=== PATIENT | female | born 1985 | race Caucasian/White ===

== ENCOUNTER 2017-01-18 20:33 | Emergency (ER) | payer MEDICAID ==
[2017-01-18 21:22] VITALS: BP 149/94
[2017-01-18] MEDS ORDERED: Ketorolac 60 MG/2 ML SDV IM ONE (22:26)
--- NOTE | 2017-01-18 22:27 | EDM.PDOC ---
ED HPI GENERAL MEDICAL PROBLEM - General Chief Complaint: Abdominal Pain Stated Complaint: OVARIAN PAIN Time Seen by Provider: 01/18/17 22:24 Source of Information: Reports: Patient History Limitations: Reports: No Limitations - History of Present Illness INITIAL COMMENTS - FREE TEXT/NARRATIVE: pt has acute pain in the left lower abdomn. Onset: Today Duration: Hour(s):, Getting Worse, Other (pt has a past history of ovarian cysts. 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) Other OB/BYN History: ovarian cyst right side Endocrine/Metabolic History: Reports: Obesity/BMI 30+ - Infectious Disease History Infectious Disease History: Reports: Chicken Pox - Past Surgical History Female Surgical History: Reports: Section Social & Family History - Tobacco Use Smoking Status *Q: Light Tobacco Smoker Years of Tobacco use: 15 Packs/Tins Daily: 0.2 Used Tobacco, but Quit: Yes Month Tobacco Last Used: 05/18 Second Hand Smoke Exposure: No - Caffeine Use Caffeine Use: Reports: Soda - Recreational Drug Use Recreational Drug Use: No ED ROS GENERAL - Review of Systems Review Of Systems: See Below Constitutional: Reports: No Symptoms HEENT: Reports: No Symptoms Respiratory: Reports: No Symptoms Cardiovascular: Reports: No Symptoms Endocrine: Reports: No Symptoms GI/Abdominal: Reports: Abdominal Pain, Other (pt has pain in the 6 range in the left lower abdoman. She does have a past history of ovarian cysts. ) : Reports: No Symptoms Musculoskeletal: Reports: No Symptoms Skin: Reports: No Symptoms ED EXAM, RENAL/ - Physical Exam Exam: See Below Text/Narrative:: pt arrived with pain in the left lower quadrant area. Exam Limited By: No Limitations General Appearance: Alert, Anxious, Moderate Distress Ears: Normal TMs Nose: Normal Inspection Throat/Mouth: Normal Inspection Head: Atraumatic Neck: Normal Inspection Respiratory/Chest: No Respiratory Distress Cardiovascular: Regular Rate, Rhythm GI/Abdominal: Soft, Non-Tender (Female) Exam: Other (pt is tender very low in the left abdoman. ) Rectal (Female) Exam: Deferred Back Exam: Normal Inspection Extremities: Normal Inspection Neurological: Alert, Oriented, Normal Cognition Psychiatric: Normal Affect Course - Vital Signs Last Recorded V/S: Last Vital Signs Temp 36.5 C 01/18/17 23:48 Pulse 81 01/18/17 23:48 Resp 16 01/18/17 23:48 BP 149/94 H 01/18/17 21:21 Pulse Ox 97 01/18/17 23:48 - Orders/Labs/Meds Orders: Active Orders 24 hr Category Date Time Status Pelvis Non OB Comp [US] Stat Exams 01/18/17 22:22 Taken Transvaginal Non OB [US] Stat Exams 01/18/17 22:22 Taken Labs: Laboratory Tests 01/18/17 01/18/17 01/18/17 Range/Units 21:45 21:45 21:53 WBC 13.3 H (4.5-11.0) K/uL RBC 5.31 (3.30-5.50) M/uL Hgb 15.3 H D (12.0-15.0) g/dL Hct 45.5 (36.0-48.0) % MCV 86 (80-98) fL MCH 29 (27-31) pg MCHC 34 (32-36) % Plt Count 341 (150-400) K/uL Neut % (Auto) 67 H (36-66) % Lymph % (Auto) 24 (24-44) % [place] % (Auto) 8 H (2-6) % Eos % (Auto) 1 L (2-4) % Baso % (Auto) 1 (0-1) % Sodium 142 (140-148) mmol/L Potassium 4.0 (3.6-5.2) mmol/L Chloride 106 (100-108) mmol/L Carbon Dioxide 25 (21-32) mmol/L Anion Gap 11.1 (5.0-14.0) mmol/L BUN 9 (7-18) mg/dL Creatinine 0.9 (0.6-1.0) mg/dL Est Cr Clr Drug Dosing 71.63 mL/min Estimated GFR (MDRD) > 60 (>60) Glucose 97 (74-106) mg/dL Calcium 9.4 D (8.5-10.1) mg/dL Total Bilirubin 0.3 (0.2-1.0) mg/dL AST 16 (15-37) U/L ALT 30 (12-78) U/L Alkaline Phosphatase 68 (46-116) U/L Total Protein 7.4 (6.4-8.2) g/dL Albumin 4.0 (3.4-5.0) g/dL Globulin 3.4 (2.3-3.5) g/dL Albumin/Globulin Ratio 1.2 (1.2-2.2) Urine Color Yellow Urine Appearance Clear Urine pH 5.0 (4.5-8.0) Ur Specific [place] 1.005 L (1.008-1.030) Urine Protein Negative (NEGATIVE) mg/dL Urine Glucose (UA) Normal (NEGATIVE) mg/dL Urine Ketones Negative (NEGATIVE) mg/dL Urine Occult Blood Negative (NEGATIVE) Urine Nitrite Negative (NEGATIVE) Urine Bilirubin Negative (NEGATIVE) Urine Urobilinogen Normal (NORMAL) mg/dL Ur Leukocyte Esterase Negative (NEGATIVE) Urine RBC 0-5 (0-5) Urine WBC 0-5 (0-5) Ur Epithelial Cells Many Amorphous Sediment Not seen Urine Bacteria Not seen Urine Mucus Not seen Meds: Medications Discontinued Medications Generic Name Dose Route Start Last Admin Trade Name Freq PRN Reason Stop Dose Admin Ketorolac Tromethamine 60 mg 01/18/17 22:26 01/18/17 22:34 Toradol IM 01/18/17 22:27 60 mg ONETIME ONE Administration - Re-Assessments/Exams Free Text/Narrative Re-Assessment/Exam: 01/19/17 00:41 pt arrived with pain in the left lower abdoman. She wa given torodol 60mg im. She had a pelvic US which showed a 2.8 cm ovarian cyst with a IUD in place. This did not show increased inflamation. The pt had no change in discharge. Departure - Departure Time of Disposition: 00:42 Disposition: Home, Self-Care 01 Condition: Fair Clinical Impression: Left ovarian cyst - Discharge Information Forms: ED Department Discharge Care Plan Goals: follow up with regular Dr, motrin 600mg tid, norco 5/325 q6h prn for pain - My Orders Last 24 Hours: My Active Orders 01/18/17 22:22 Pelvis Non OB Comp [US] Stat Transvaginal Non OB [US] Stat - Assessment/Plan Last 24 Hours: My Active Orders 01/18/17 22:22 Pelvis Non OB Comp [US] Stat Transvaginal Non OB [US] Stat
== END 2017-01-19 00:59 | disposition home or self-care (01) ==
LOC: JP.ED 20:33
DX: N83.202 Unspecified ovarian cyst, left side (principal); F17.210 Nicotine dependence, cigarettes, uncomplicated; E66.9 Obesity, unspecified; Z88.2 Allergy status to sulfonamides
CPT/HCPCS: 36415; 76830; 76856; 80053; 81001; 85025; 96372; 99284; J1885

== ENCOUNTER 2017-05-28 20:33 | Emergency (ER) | payer BC, MEDICAID ==
[2017-05-28 21:00] VITALS: BP 155/98
[2017-05-28] MEDS ORDERED: Ondansetron 4 MG/2 ML SDV IVPUSH ONE (21:49)
[2017-05-28] MEDS ORDERED: Ketorolac 30 MG/ML SDV IVPUSH ONE (21:49)
[2017-05-28] MEDS ORDERED: Sodium Chloride 0.9% 1,000 ML IV ONE (21:50)
[2017-05-28] MEDS ORDERED: Sodium Chloride 0.9% 10 ML Syringe FLUSH PRN (22:14)
[2017-05-28] MEDS ORDERED: Iopamidol 612 MG/ML 150 ML Bottle IV SCH (22:15)
[2017-05-28] MEDS ORDERED: Sodium Chloride 0.9% 80 ML IV SCH (22:15)
--- NOTE | 2017-05-28 22:29 | EDM.PDOC ---
ED HPI GENERAL MEDICAL PROBLEM - General Chief Complaint: Abdominal Pain Stated Complaint: OVARIAN CYSTS Time Seen by Provider: 05/28/17 21:19 Source of Information: Reports: Patient History Limitations: Reports: No Limitations - History of Present Illness INITIAL COMMENTS - FREE TEXT/NARRATIVE: Abdominal pain: This is a 31-year-old female presents emergency room by private vehicle, she reports 6 days of left-sided abdominal pain constant stabbing type pain that has worsened today and she is now here for evaluation. She rates her pain 7 or 8 out of 10. Denies any nausea, vomiting, diarrhea, rash, fever or chills. Reports history of left ovarian cyst, last cyst evaluation was in the emergency room which showed a 2.8 cm cyst on the left side without rupture. Surgical history consists of 2. Past medical, ovarian cysts, childbirth 2 and IUD placement Onset: Gradual Duration: Day(s): (6), Getting Worse Location: Reports: Abdomen Quality: Reports: Sharp, Stabbing, Throbbing Severity: Severe (Rates pain 7 out of 10) Improves with: Reports: None Worsens with: Reports: None Associated Symptoms: Reports: No Other Symptoms (Exactly which is) left flank Pain Score (Numeric/FACES): 6 - Related Data Allergies Allergy/AdvReac Type Severity Reaction Status Date / Time Sulfa (Sulfonamide Allergy Hives Verified 05/28/17 21:10 Antibiotics) Home Meds: Home Meds NK [No Known Home Meds] 05/28/17 [History] Past Medical History - Past Health History Medical/Surgical History: Denies 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: , 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) Other OB/BYN History: ovarian cyst right side Endocrine/Metabolic History: Reports: Obesity/BMI 30+ - Infectious Disease History Infectious Disease History: Reports: Chicken Pox - Past Surgical History Female Surgical History: Reports: Section Social & Family History - Tobacco Use Smoking Status *Q: Light Tobacco Smoker Years of Tobacco use: 2 Packs/Tins Daily: 0.2 Used Tobacco, but Quit: Yes Month Tobacco Last Used: 05/18 Second Hand Smoke Exposure: No - Caffeine Use Caffeine Use: Reports: Soda - Recreational Drug Use Recreational Drug Use: No - Living Situation & Occupation Living situation: Reports: , with Family (Lives with her and 2 children ages 4 and 2 years., in [facility]) ED ROS GENERAL - Review of Systems Review Of Systems: See Below Constitutional: Reports: Fatigue (Due to pain) HEENT: Reports: No Symptoms Respiratory: Reports: No Symptoms Cardiovascular: Reports: No Symptoms Endocrine: Reports: No Symptoms GI/Abdominal: Reports: Abdominal Pain : Reports: No Symptoms Musculoskeletal: Reports: Back Pain (Mid left-sided) Skin: Reports: No Symptoms Neurological: Reports: No Symptoms Psychiatric: Reports: No Symptoms Hematologic/Lymphatic: Reports: No Symptoms Immunologic: Reports: No Symptoms ED EXAM, GENERAL - Physical Exam Exam: See Below Exam Limited By: No Limitations General Appearance: Alert, WD/WN, No Apparent Distress Eye Exam: Bilateral Eye: Normal Inspection Ears: Normal External Exam, Normal Canal, Hearing Grossly Normal, Normal TMs Ear Exam: Bilateral Ear: Auricle Normal, Canal Normal, TM normal Nose: Normal Inspection, Normal Mucosa, No Blood Throat/Mouth: Normal Inspection, Normal Lips, Normal Teeth, Normal Gums, Normal Oropharynx, Normal Voice, No Airway Compromise Head: Atraumatic, Normocephalic Neck: Normal Inspection, Supple, Non-Tender, Full Range of Motion Respiratory/Chest: Lungs Clear, Normal Breath Sounds, Chest Non-Tender Cardiovascular: Regular Rate, Rhythm, No Edema, No Murmur GI/Abdominal: Normal Bowel Sounds, Soft, Guarding (Left upper abdomen, with rebound tenderness and left flank pain), Rebound, Tender (Female) Exam: Deferred Rectal (Female) Exam: Deferred Back Exam: CVA Tenderness (L) Extremities: Normal Inspection, Normal Range of Motion, Non-Tender, No Pedal Edema, Normal Capillary Refill Neurological: Alert, Oriented, Normal Cognition, No Motor/Sensory Deficits Psychiatric: Normal Affect, Normal Mood Skin Exam: Warm, Dry, Intact, Normal Color, No Rash Lymphatic: No Adenopathy Course - Vital Signs Last Recorded V/S: Last Vital Signs Temp 36.4 C 05/28/17 20:59 Pulse 86 05/28/17 20:59 Resp 16 05/28/17 20:59 BP 155/98 H 05/28/17 20:59 Pulse Ox 96 05/28/17 20:59 - Orders/Labs/Meds Orders: Active Orders 24 hr Category Date Time Status Abdomen Pelvis w Cont [CT] Stat Exams 05/28/17 22:21 Taken Abdomen Pelvis wo Cont [CT] Stat Exams 05/28/17 21:48 Stop Req Pelvis Non OB Ltd [US] Stat Exams 05/29/17 00:05 Ordered Transvaginal Non OB [US] Stat Exams 05/29/17 00:05 Ordered Iopamidol [Isovue-300 (61%)] Med 05/28/17 22:15 Active 150 ml IV . DIRECTED Sodium Chloride 0.9% [Normal Saline] 1,000 ml Med 05/28/17 23:45 Active IV ASDIRECTED Sodium Chloride 0.9% [Normal Saline] 80 ml Med 05/28/17 22:15 Active IV ASDIRECTED Sodium Chloride 0.9% [Saline Flush] Med 05/28/17 22:14 Active 10 ml FLUSH ASDIRECTED PRN Medication Orders Sodium Chloride (Normal Saline) 80 mls @ 3 mls/sec IV ASDIRECTED MARY Last Admin: 05/28/17 22:30 Dose: 3 mls/sec Sodium Chloride (Normal Saline) 1,000 mls @ 125 mls/hr IV ASDIRECTED MARY Iopamidol (Isovue-300 (61%)) 150 ml IV . DIRECTED MARY Last Admin: 05/28/17 22:30 Dose: 150 ml Sodium Chloride (Saline Flush) 10 ml FLUSH ASDIRECTED PRN PRN Reason: Keep Vein Open Last Admin: 05/28/17 22:30 Dose: 10 ml Labs: Laboratory Tests 05/28/17 05/28/17 05/28/17 Range/Units 21:42 21:42 21:51 WBC 13.5 H (4.5-11.0) K/uL RBC 5.06 (3.30-5.50) M/uL Hgb 14.5 (12.0-15.0) g/dL Hct 43.1 (36.0-48.0) % MCV 85 (80-98) fL MCH 29 (27-31) pg MCHC 34 (32-36) % Plt Count 284 (150-400) K/uL Neut % (Auto) 59 (36-66) % Lymph % (Auto) 32 (24-44) % [place] % (Auto) 8 H (2-6) % Eos % (Auto) 1 L (2-4) % Baso % (Auto) 0 (0-1) % Sodium 142 (140-148) mmol/L Potassium 4.2 (3.6-5.2) mmol/L Chloride 109 H (100-108) mmol/L Carbon Dioxide 26 (21-32) mmol/L Anion Gap 11.2 (5.0-14.0) mmol/L BUN 9 (7-18) mg/dL Creatinine 0.8 (0.6-1.0) mg/dL Est Cr Clr Drug Dosing 80.59 mL/min Estimated GFR (MDRD) > 60 (>60) Glucose 95 (74-106) mg/dL Calcium 9.0 (8.5-10.1) mg/dL Total Bilirubin 0.2 (0.2-1.0) mg/dL AST 15 (15-37) U/L ALT 27 (12-78) U/L Alkaline Phosphatase 61 (46-116) U/L Total Protein 7.0 (6.4-8.2) g/dL Albumin 3.8 (3.4-5.0) g/dL Globulin 3.2 (2.3-3.5) g/dL Albumin/Globulin Ratio 1.2 (1.2-2.2) Urine Color Urine Appearance Urine pH (4.5-8.0) Ur Specific [place] (1.008-1.030) Urine Protein (NEGATIVE) mg/dL Urine Glucose (UA) (NEGATIVE) mg/dL Urine Ketones (NEGATIVE) mg/dL Urine Occult Blood (NEGATIVE) Urine Nitrite (NEGATIVE) Urine Bilirubin (NEGATIVE) Urine Urobilinogen (NORMAL) mg/dL Ur Leukocyte Esterase (NEGATIVE) Urine RBC (0-5) Urine WBC (0-5) Ur Epithelial Cells Amorphous Sediment Urine Bacteria Urine Mucus Urine HCG, Qual Negative 05/28/17 Range/Units 21:51 WBC (4.5-11.0) K/uL RBC (3.30-5.50) M/uL Hgb (12.0-15.0) g/dL Hct (36.0-48.0) % MCV (80-98) fL MCH (27-31) pg MCHC (32-36) % Plt Count (150-400) K/uL Neut % (Auto) (36-66) % Lymph % (Auto) (24-44) % [place] % (Auto) (2-6) % Eos % (Auto) (2-4) % Baso % (Auto) (0-1) % Sodium (140-148) mmol/L Potassium (3.6-5.2) mmol/L Chloride (100-108) mmol/L Carbon Dioxide (21-32) mmol/L Anion Gap (5.0-14.0) mmol/L BUN (7-18) mg/dL Creatinine (0.6-1.0) mg/dL Est Cr Clr Drug Dosing mL/min Estimated GFR (MDRD) (>60) Glucose (74-106) mg/dL Calcium (8.5-10.1) mg/dL Total Bilirubin (0.2-1.0) mg/dL AST (15-37) U/L ALT (12-78) U/L Alkaline Phosphatase (46-116) U/L Total Protein (6.4-8.2) g/dL Albumin (3.4-5.0) g/dL Globulin (2.3-3.5) g/dL Albumin/Globulin Ratio (1.2-2.2) Urine Color Yellow Urine Appearance Clear Urine pH 6.0 (4.5-8.0) Ur Specific [place] 1.015 (1.008-1.030) Urine Protein Negative (NEGATIVE) mg/dL Urine Glucose (UA) Normal (NEGATIVE) mg/dL Urine Ketones Negative (NEGATIVE) mg/dL Urine Occult Blood Negative (NEGATIVE) Urine Nitrite Negative (NEGATIVE) Urine Bilirubin Negative (NEGATIVE) Urine Urobilinogen Normal (NORMAL) mg/dL Ur Leukocyte Esterase Negative (NEGATIVE) Urine RBC Not seen (0-5) Urine WBC 0-5 (0-5) Ur Epithelial Cells Moderate Amorphous Sediment Not seen Urine Bacteria Few Urine Mucus Not seen Urine HCG, Qual Meds: Medications Generic Name Dose Route Start Last Admin Trade Name Freq PRN Reason Stop Dose Admin Sodium Chloride 80 mls @ 3 mls/sec 05/28/17 22:15 05/28/17 22:30 Normal Saline IV 3 mls/sec ASDIRECTED MARY Administration Sodium Chloride 1,000 mls @ 125 mls/hr 05/28/17 23:45 Normal Saline IV ASDIRECTED MARY Iopamidol 150 ml 05/28/17 22:15 05/28/17 22:30 Isovue-300 (61%) IV 150 ml . DIRECTED MARY Administration Sodium Chloride 10 ml 05/28/17 22:14 05/28/17 22:30 Saline Flush FLUSH 10 ml ASDIRECTED PRN Administration Keep Vein Open Discontinued Medications Generic Name Dose Route Start Last Admin Trade Name Sonia PRN Reason Stop Dose Admin Sodium Chloride 1,000 mls @ 999 mls/hr 05/28/17 21:50 05/28/17 22:02 Normal Saline IV 05/28/17 22:50 999 mls/hr .BOLUS ONE Administration Ketorolac Tromethamine 30 mg 05/28/17 21:49 05/28/17 22:02 Toradol IVPUSH 05/28/17 21:50 30 mg ONETIME ONE Administration Ondansetron HCl 4 mg 05/28/17 21:49 05/28/17 22:02 Zofran IVPUSH 05/28/17 21:50 4 mg ONETIME ONE Administration - Re-Assessments/Exams Free Text/Narrative Re-Assessment/Exam: 05/28/17 22:32 While emergency room given 1 L normal saline, Zofran 4 mg, and Toradol 30 mg IV. has abdomen pelvis with contrast CT pending at this time; CT report abdomen pelvis no acute abnormality of the abdomen pelvis. 2 prominence of the left gonadal vein this is nonspecific but can be seen with pelvic congestion syndrome. 3 incomplete evaluation with 3.6 cm low attenuating structure within the right adnexa if clinically warranted could be further evaluated with a pelvic ultrasound. 05/29/17 00:38 Pelvis ultrasound; right ovarian cyst, free fluid is seen. No acute findings are noted Head CT report and the pelvic ultrasound with patient will plan to discharge home with pain medications and advised no bending lifting or twisting. plan to follow-up with her primary care next week or within the month at the latest. Return to ER for any acute abdominal pain or any concerns. Departure - Departure Time of Disposition: 00:41 Disposition: Home, Self-Care 01 Condition: Good Clinical Impression: Ovarian cyst, right, Muscle strain - Discharge Information Referrals: Gerson Navarro MD [Primary Care Provider] - Forms: ED Department Discharge Care Plan Goals: Right ovarian cyst with left abdominal wall strain -May use [id number] Motrin or Aleve or naproxen as directed for pain instrument hydrocodone 5/325 one every 4-6 when necessary pain #12 -Advised no bending, lifting, twisting, for the next 7 days then increase activities as tolerated -May use ice or heat for comfort -Return to primary care provider for recheck in the next 7-28 days Return to emergency room immediately for any increased pain, fever, nausea, vomiting are not improved. - Problem List & Annotations (1) Ovarian cyst, right SNOMED Code(s): 32407362 Code(s): N83.201 - UNSPECIFIED OVARIAN CYST, RIGHT SIDE Status: Acute Priority: Medium Current Visit: Yes - Problem List Review Problem List Initiated/Reviewed/Updated: Yes - My Orders Last 24 Hours: My Active Orders 05/28/17 21:48 Abdomen Pelvis wo Cont [CT] Stat 05/28/17 22:14 Sodium Chloride 0.9% [Saline Flush] 10 ml FLUSH ASDIRECTED PRN 05/28/17 22:15 Iopamidol [Isovue-300 (61%)] 150 ml IV . DIRECTED Sodium Chloride 0.9% [Normal Saline] 80 ml IV ASDIRECTED 05/28/17 22:21 Abdomen Pelvis w Cont [CT] Stat 05/28/17 23:45 Sodium Chloride 0.9% [Normal Saline] 1,000 ml IV ASDIRECTED 05/29/17 00:05 Pelvis Non OB Ltd [US] Stat Transvaginal Non OB [US] Stat - Assessment/Plan Last 24 Hours: My Active Orders 05/28/17 21:48 Abdomen Pelvis wo Cont [CT] Stat 05/28/17 22:14 Sodium Chloride 0.9% [Saline Flush] 10 ml FLUSH ASDIRECTED PRN 05/28/17 22:15 Iopamidol [Isovue-300 (61%)] 150 ml IV . DIRECTED Sodium Chloride 0.9% [Normal Saline] 80 ml IV ASDIRECTED 05/28/17 22:21 Abdomen Pelvis w Cont [CT] Stat 05/28/17 23:45 Sodium Chloride 0.9% [Normal Saline] 1,000 ml IV ASDIRECTED 05/29/17 00:05 Pelvis Non OB Ltd [US] Stat Transvaginal Non OB [US] Stat Plan: Right ovarian cyst with left abdominal wall strain -May use [id number] Motrin or Aleve or naproxen as directed for pain instrument hydrocodone 5/325 one every 4-6 when necessary pain #12 -Advised no bending, lifting, twisting, for the next 7 days then increase activities as tolerated -May use ice or heat for comfort -Return to primary care provider for recheck in the next 7-28 days Return to emergency room immediately for any increased pain, fever, nausea, vomiting are not improved.
[2017-05-28] MEDS ORDERED: Sodium Chloride 0.9% 1,000 ML IV SCH (23:45)
== END 2017-05-29 00:57 | disposition home or self-care (01) ==
LOC: JP.ED 20:33
DX: N83.201 Unspecified ovarian cyst, right side (principal); S39.011A Strain of muscle, fascia and tendon of abdomen, initial encounter; E66.9 Obesity, unspecified; F17.210 Nicotine dependence, cigarettes, uncomplicated; Z88.2 Allergy status to sulfonamides; X58.XXXA Exposure to other specified factors, initial encounter
CPT/HCPCS: 36415; 74177; 76830; 76856; 80053; 81001; 81025; 85025; 96361; 96374; 96375; 99284; J1885; J2405; J7030; J7040; J7050

== ENCOUNTER 2019-11-23 12:41 | Emergency (ER) | payer BC, MEDICAID ==
[2019-11-23 12:55] VITALS: BP 138/78; PULSE 89
[2019-11-23] MEDS ORDERED: Phenazopyridine 95 MG Tab PO ONE (13:25)
--- NOTE | 2019-11-23 13:41 | EDM.PDOC ---
ED HPI GENERAL MEDICAL PROBLEM - General Chief Complaint: Genitourinary Problem Stated Complaint: UTI? Time Seen by Provider: 11/23/19 13:20 Source of Information: Reports: Patient History Limitations: Reports: No Limitations - History of Present Illness INITIAL COMMENTS - FREE TEXT/NARRATIVE: 34-year-old female with dysuria and increased urinary frequency for the past 24 hours. No fever or back pain, no nausea or vomiting. She does have a history of bladder infections in the past. 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 Endocrine/Metabolic History: Reports: Obesity/BMI 30+ - Infectious Disease History Infectious Disease History: Reports: Chicken Pox - Past Surgical History Female Surgical History: Reports: Section Social & Family History - Tobacco Use Smoking Status *Q: Current Every Day Smoker Years of Tobacco use: 2 Packs/Tins Daily: 0.3 - Caffeine Use Caffeine Use: Reports: Soda - Recreational Drug Use Recreational Drug Use: No - Living Situation & Occupation Living situation: Reports: , with Family (Lives with her and 2 children ages 4 and 2 years., [place]) ED ROS GENERAL - Review of Systems Review Of Systems: See Below Constitutional: Denies: Fever, Chills Respiratory: Denies: Shortness of Breath Cardiovascular: Denies: Chest Pain GI/Abdominal: Denies: Abdominal Pain : Reports: Dysuria, Frequency Neurological: Reports: No Symptoms ED EXAM, RENAL/ - Physical Exam Exam: See Below Exam Limited By: No Limitations General Appearance: Alert, No Apparent Distress Head: Atraumatic Respiratory/Chest: No Respiratory Distress, Lungs Clear GI/Abdominal: Soft, Other (Some discomfort to palpation in the suprapubic area but no discrete tenderness or guarding) Back Exam: No: CVA Tenderness (R), CVA Tenderness (L) Neurological: Alert, Oriented Psychiatric: Normal Affect, Normal Mood Course - Vital Signs Last Recorded V/S: Last Vital Signs Temp 96.2 F L 11/23/19 12:54 Pulse 89 11/23/19 12:54 Resp 16 11/23/19 12:54 BP 138/78 11/23/19 12:54 Pulse Ox 100 11/23/19 12:54 - Orders/Labs/Meds Orders: Active Orders 24 hr Category Date Time Status CULTURE URINE [RM] Stat Lab 11/23/19 13:42 Received Labs: Laboratory Tests 11/23/19 Range/Units 13:17 Urine Color Yellow (YELLOW) Urine Appearance Cloudy A (CLEAR) Urine pH 5.5 (5.0-8.0) Ur Specific [place] >= 1.030 (1.008-1.030) Urine Protein 100 H (NEGATIVE) mg/dL Urine Glucose (UA) Negative (NEGATIVE) mg/dL Urine Ketones Negative (NEGATIVE) mg/dL Urine Occult Blood Large H (NEGATIVE) Urine Nitrite Positive H (NEGATIVE) Urine Bilirubin Negative (NEGATIVE) Urine Urobilinogen 0.2 (0.2-1.0) EU/dL Ur Leukocyte Esterase Small H (NEGATIVE) Urine RBC 40-50 H (0-5) Urine WBC 40-50 H (0-5) Ur Epithelial Cells Few Amorphous Sediment Not seen Urine Bacteria Many Urine Mucus Few Meds: Medications Discontinued Medications Generic Name Dose Route Start Last Admin Trade Name Freq PRN Reason Stop Dose Admin Phenazopyridine HCl 190 mg 11/23/19 13:25 11/23/19 13:30 Urinary Pain Relief PO 11/23/19 13:26 190 mg ONETIME ONE Administration - Re-Assessments/Exams Free Text/Narrative Re-Assessment/Exam: 11/23/19 13:40 A UA was obtained which is markedly abnormal, nitrite positive with bacteria and WBCs. Patient was given 190 mg of Pyridium orally, a urine culture was initiated and she was placed on Macrobid 100 mg twice daily. She can return in 2 to 3 days if not improving. Departure - Departure Time of Disposition: 13:51 Disposition: Home, Self-Care 01 Clinical Impression: Cystitis, UTI, Urinary tract infectious disease - Discharge Information Instructions: Urinary Tract Infection, Adult Referrals: Gerson Navarro MD [Primary Care Provider] - Forms: ED Department Discharge Care Plan Goals: Take antibiotic twice daily for at least 5 days and up to 7 days if needed. Return if worsening despite treatment such as fever or vomiting the medication, or consider rechecking in 3 to 4 days if not improving. Sepsis Event Note - Evaluation Sepsis Screening Result: No Definite Risk - Focused Exam Vital Signs: Vital Signs Temp Pulse Resp BP Pulse Ox 11/23/19 12:54 96.2 F L 89 16 138/78 100 Date Exam was Performed: 11/23/19 Time Exam was Performed: 13:56 - My Orders Last 24 Hours: My Active Orders 11/23/19 13:42 CULTURE URINE [RM] Stat - Assessment/Plan Last 24 Hours: My Active Orders 11/23/19 13:42 CULTURE URINE [RM] Stat
== END 2019-11-23 13:49 | disposition home or self-care (01) ==
LOC: JP.ED 12:41
DX: N30.90 Cystitis, unspecified without hematuria (principal); Z88.2 Allergy status to sulfonamides; E66.9 Obesity, unspecified; F17.210 Nicotine dependence, cigarettes, uncomplicated; Z68.38 Body mass index [BMI] 38.0-38.9, adult
CPT/HCPCS: 81001; 87086; 87088; 87186; 99283; A9270

== ENCOUNTER 2020-05-05 10:32 | Emergency (ER) | payer BC, OTHER ==
[2020-05-05 11:13] VITALS: BP 133/88; PULSE 87
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
[2020-05-05] MEDS ORDERED: Ketorolac 60 MG/2 ML SDV IM ONE (12:46)
--- NOTE | 2020-05-05 13:16 | CR ---
Cervical Spine Min 4V CLINICAL HISTORY: Right neck pain FINDINGS: The vertebral body heights are intact. The disc spaces are maintained throughout. There is no significant spondylosis. Alignment is maintained. There is some straightening of the cervical lordosis. This can be seen with spasm IMPRESSION: Straightening of the cervical stenosis may indicate spasm No fracture, subluxation or significant degenerative change
== END 2020-05-05 13:55 | disposition home or self-care (01) ==
LOC: JP.ED 10:32
DX: M62.838 Other muscle spasm (principal); F17.210 Nicotine dependence, cigarettes, uncomplicated; E66.9 Obesity, unspecified; Z68.38 Body mass index [BMI] 38.0-38.9, adult; Z88.2 Allergy status to sulfonamides; V49.9XXA Car occupant (driver) (passenger) injured in unspecified traffic accident, initial encounter
CPT/HCPCS: 72050; 96372; 99283; 99284; J1885

== ENCOUNTER 2021-06-02 20:31 | Emergency (ER) | payer BC, MEDICAID, OTHER ==
[2021-06-02 20:52] VITALS: BP 124/64; PULSE 84
[2021-06-02] MEDS ORDERED: Mupirocin Oint 22 GM Tube TOP ONE (21:08)
--- NOTE | 2021-06-02 21:14 | EDM.PDOC ---
ED HPI GENERAL MEDICAL PROBLEM - General Chief Complaint: ENT Problem Stated Complaint: SWOLLEN NOSE Time Seen by Provider: 06/02/21 21:00 Source of Information: Reports: Patient History Limitations: Reports: No Limitations - History of Present Illness INITIAL COMMENTS - FREE TEXT/NARRATIVE: Chantale is a 35-year-old female presenting to the ED for evaluation of a painful red, swollen bump on the inside of the left nostril on the septum. Symptoms started today. The patient has been dealing with sinus issues for the last week. She has been putting hydrocortisone 10 cream on the lesion without any improvement. 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: , 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) 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 History: ovarian cyst right side Neurological History: Reports: Headaches, Chronic Endocrine/Metabolic History: Reports: Obesity/BMI 30+ - Infectious Disease History Infectious Disease History: Reports: Chicken Pox, Novel Coronavirus - Past Surgical History Female Surgical History: Reports: Section Social & Family History - Family History Family Medical History: No Pertinent Family History - Tobacco Use Tobacco Use Status *Q: Current Every Day Tobacco User Years of Tobacco use: 5 Packs/Tins Daily: 0.5 - Caffeine Use Caffeine Use: Reports: None - Recreational Drug Use Recreational Drug Use: No - Living Situation & Occupation Living situation: Reports: , with Family (Lives with her and 2 children ages 4 and 2 years., in [facility]) ED ROS ENT - Review of Systems Review Of Systems: See Below Constitutional: Reports: No Symptoms HEENT: Reports: Nose Pain, Rhinitis Respiratory: Reports: No Symptoms Cardiovascular: Reports: No Symptoms GI/Abdominal: Reports: No Symptoms : Reports: No Symptoms Musculoskeletal: Reports: No Symptoms Skin: Reports: No Symptoms Neurological: Reports: No Symptoms Hematologic/Lymphatic: Reports: No Symptoms Immunologic: Reports: No Symptoms ED EXAM, ENT - Physical Exam Exam: See Below Exam Limited By: No Limitations General Appearance: Alert, No Apparent Distress Eye Exam: Bilateral Eye: EOMI, PERRL Nose: Nasal Swelling (Red, painful swelling at the tip of the left nasal septum causing pain. There is small pustules in this consistent with acute vestibulitis.), Nasal Tenderness (Left nasal septum) Mouth/Throat: Normal Inspection, Normal Oropharynx Head: Atraumatic, Normocephalic Neck: Normal Inspection, Supple, Non-Tender, Full Range of Motion. No: Lymphadenopathy (R), Lymphadenopathy (L) Course - Vital Signs Last Recorded V/S: Last Vital Signs Temp 36.7 C 06/02/21 20:51 Pulse 84 06/02/21 20:51 Resp 18 06/02/21 20:51 BP 124/64 06/02/21 20:51 Pulse Ox 100 06/02/21 20:51 - Orders/Labs/Meds Meds: Medications Discontinued Medications Generic Name Dose Route Start Last Admin Trade Name Freq PRN Reason Stop Dose Admin Mupirocin 1 gm 06/02/21 21:08 Mupirocin Oint 22 Gm Tube TOP 06/02/21 21:09 ONETIME ONE Departure - Departure Time of Disposition: 21:10 Disposition: Home, Self-Care 01 Clinical Impression: Nasal vestibulitis - Discharge Information Referrals: Gerson Navarro MD [Primary Care Provider] - Care Plan Goals: You have acute nasal vestibulitis which is a bacterial infection of the mucous membranes involving the nasal septum. We have been to put you on Bactroban antibiotic cream which she will apply to the area 3 times a day for the next 5 to 7 days. Use warm compresses to increase blood flow to the area did not relieve symptoms. This should subside in the course of the 5 days. Sepsis Event Note (ED) - Evaluation Sepsis Screening Result: No Definite Risk - Focused Exam Vital Signs: Vital Signs Temp Pulse Resp BP Pulse Ox 06/02/21 20:51 36.7 C 84 18 124/64 100 - Problem List & Annotations (1) Nasal vestibulitis SNOMED Code(s): 96370950 Code(s): J34.89 - OTHER SPECIFIED DISORDERS OF NOSE AND NASAL SINUSES Status: Acute Priority: Low Current Visit: Yes - Problem List Review Problem List Initiated/Reviewed/Updated: Yes
[2021-06-02] MEDS ORDERED: Mupirocin Oint 22 GM Tube ONE (21:27)
== END 2021-06-02 21:44 | disposition home or self-care (01) ==
LOC: JP.ED 20:31
DX: J34.89 Other specified disorders of nose and nasal sinuses (principal); E66.9 Obesity, unspecified; Z68.38 Body mass index [BMI] 38.0-38.9, adult; Z72.0 Tobacco use; Z86.16 Personal history of COVID-19; Z88.2 Allergy status to sulfonamides
CPT/HCPCS: 99282; A9270

== ENCOUNTER 2021-07-03 11:41 | Emergency (ER) | payer MEDICAID, BC ==
[2021-07-03 12:09] VITALS: BP 113/82; PULSE 89
--- NOTE | 2021-07-03 13:01 | EDM.PDOC ---
ED HPI GENERAL MEDICAL PROBLEM - General Chief Complaint: Genitourinary Problem Stated Complaint: POSSIBLE UTI Time Seen by Provider: 07/03/21 12:50 Source of Information: Reports: Patient, RN Notes Reviewed History Limitations: Reports: No Limitations - History of Present Illness INITIAL COMMENTS - FREE TEXT/NARRATIVE: 35-year-old female presents emergency department day complaint of dysuria, she states has had this for about a day or so does have a history of recurrent UTIs she has had some abdominal pain no back pain no fevers. Lower Abdomen Pain Score (Numeric/FACES): 3 - Related Data Allergies Allergy/AdvReac Type Severity Reaction Status Date / Time Sulfa (Sulfonamide Allergy Hives Verified 07/03/21 12:09 Antibiotics) Home Meds: Home Meds Ascorbic Acid [Vitamin C] 3 tab PO DAILY 06/02/21 [History] D-Methorphan/PE/Acetaminophen [Day Time Cold-Flu Softgel] 1 tab PO Q4H 06/02/21 [History] Pseudoephedrine HCl [Sudafed 12-Hour] 1 tab PO BID 06/02/21 [History] Rimegepant Sulfate [Nurtec Odt] 75 mg PO DAILY 07/03/21 [History] traZODone 50 mg PO BEDTIME 07/03/21 [History] Past Medical History - Past Health History Medical/Surgical History: Denies Medical/Surgical History Genitourinary History: Reports: UTI, Recurrent 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: , 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) 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: ovarian cyst right side Neurological History: Reports: Headaches, Chronic Endocrine/Metabolic History: Reports: Obesity/BMI 30+ - Infectious Disease History Infectious Disease History: Reports: Chicken Pox, Novel Coronavirus - Past Surgical History Female Surgical History: Reports: Section Social & Family History - Family History Family Medical History: No Pertinent Family History - Tobacco Use Tobacco Use Status *Q: Current Every Day Tobacco User Years of Tobacco use: 4 Packs/Tins Daily: 0.5 - Caffeine Use Caffeine Use: Reports: None - Recreational Drug Use Recreational Drug Use: No - Living Situation & Occupation Living situation: Reports: , with Family (Lives with her and 2 children ages 4 and 2 years., in [facility]) ED ROS GENERAL - Review of Systems Review Of Systems: See Below Constitutional: Reports: No Symptoms Respiratory: Reports: No Symptoms Cardiovascular: Reports: No Symptoms GI/Abdominal: Reports: Abdominal Pain : Reports: Dysuria ED EXAM, RENAL/ - Physical Exam Exam: See Below Exam Limited By: No Limitations General Appearance: Alert, WD/WN, No Apparent Distress Respiratory/Chest: No Respiratory Distress GI/Abdominal: Soft, Tender (Suprapubic region) Back Exam: Normal Inspection, Full Range of Motion. No: CVA Tenderness (R), CVA Tenderness (L) Course - Vital Signs Last Recorded V/S: Last Vital Signs Temp 97.8 F 07/03/21 12:07 Pulse 89 07/03/21 12:07 Resp 18 07/03/21 12:07 BP 113/82 07/03/21 12:07 Pulse Ox 96 07/03/21 12:07 - Orders/Labs/Meds Orders: Active Orders 24 hr Category Date Time Status CULTURE URINE [RM] Urgent Lab 07/03/21 12:57 Ordered Labs: Laboratory Tests 07/03/21 Range/Units 12:20 Urine Color Yellow (YELLOW) Urine Appearance Slightly cloudy A (CLEAR) Urine pH 7.0 (5.0-8.0) Ur Specific [place] 1.020 (1.008-1.030) Urine Protein Negative (NEGATIVE) mg/dL Urine Glucose (UA) Negative (NEGATIVE) mg/dL Urine Ketones Negative (NEGATIVE) mg/dL Urine Occult Blood Trace-lysed H (NEGATIVE) Urine Nitrite Negative (NEGATIVE) Urine Bilirubin Negative (NEGATIVE) Urine Urobilinogen 0.2 (0.2-1.0) EU/dL Ur Leukocyte Esterase Negative (NEGATIVE) Urine RBC 0-5 (0-5) Urine WBC Not seen (0-5) Ur Epithelial Cells Many Amorphous Sediment Not seen Urine Bacteria Moderate Urine Mucus Not seen Departure - Departure Time of Disposition: 13:01 Disposition: Home, Self-Care 01 Condition: Fair Clinical Impression: Dysuria - Discharge Information Instructions: Dysuria Referrals: Gerson Navarro MD [Primary Care Provider] - Additional Instructions: Take full course of antibiotics, please followup with your primary care provider in 3-5 days if not better, please call return to the emergency department with worsening of symptoms. Sepsis Event Note (ED) - Evaluation Sepsis Screening Result: No Definite Risk - Focused Exam Vital Signs: Vital Signs Temp Pulse Resp BP Pulse Ox 07/03/21 12:07 97.8 F 89 18 113/82 96 - My Orders Last 24 Hours: My Active Orders 07/03/21 12:57 CULTURE URINE [RM] Urgent - Assessment/Plan Last 24 Hours: My Active Orders 07/03/21 12:57 CULTURE URINE [RM] Urgent Plan: Assessment Acuity = acute Site and laterality = dysuria Etiology = unknown Manifestations = none Location of injury = Home Lab values = urinalysis unremarkable cultures pending Plan Elected to treat empirically ciprofloxacin 250 mg p.o. twice daily x5 days we will contact her with culture results otherwise follow-up primary care in 3 to 5 days if not better This note was dictated using [employer] voice recognition software please call with any questions on syntax or grammar.
== END 2021-07-03 13:10 | disposition home or self-care (01) ==
LOC: JP.ED 11:41
DX: R30.0 Dysuria (principal); E66.9 Obesity, unspecified; Z68.38 Body mass index [BMI] 38.0-38.9, adult; Z86.16 Personal history of COVID-19; Z72.0 Tobacco use; Z88.2 Allergy status to sulfonamides; Z79.899 Other long term (current) drug therapy
CPT/HCPCS: 81001; 87086; 99284

== ENCOUNTER 2023-06-09 18:19 | Emergency (ER) | payer MEDICAID ==
[2023-06-09 18:33] VITALS: BP 140/84; PULSE 86
[2023-06-09 19:10] LABS: AMORPHOUS SEDIMENT,URINE NOT SEEN; APPEARANCE,URINE CLEAR (CLEAR); BACTERIA,URINE FEW; BILIRUBIN,URINE NEGATIVE (NEGATIVE); COLOR,URINE YELLOW (YELLOW); EPITHELIAL CELLS,URINE FEW; GLUCOSE,URINE NEGATIVE (NEGATIVE); KETONES,URINE NEGATIVE (NEGATIVE); LEUKOCYTE ESTERASE,URINE SMALL (NEGATIVE); MUCUS,URINE NOT SEEN; NITRITE,URINE NEGATIVE (NEGATIVE); OCCULT BLOOD,URINE SMALL (NEGATIVE); PROTEIN,URINE NEGATIVE (NEGATIVE); RBC,URINE 0-5 (0-5); UROBILINOGEN,URINE 0.2 EU/dL (0.2-1.0)
== END 2023-06-09 19:58 | disposition home or self-care (01) ==
LOC: JP.ED 18:19
DX: N39.0 Urinary tract infection, site not specified (principal); E66.9 Obesity, unspecified; Z68.41 Body mass index [BMI] 40.0-44.9, adult; Z87.891 Personal history of nicotine dependence; Z86.16 Personal history of COVID-19; Z88.2 Allergy status to sulfonamides; Z79.899 Other long term (current) drug therapy
CPT/HCPCS: 81001; 87086; 99283

== ENCOUNTER 2023-06-11 18:14 | Emergency (ER) | payer MEDICAID ==
[2023-06-11 18:22] VITALS: BP 142/85; PULSE 119
[2023-06-11 18:52] LABS: BASOPHILS ABSOLUTE AUTO 0.03 K/uL (0.00-0.10); BASOPHILS PERCENT AUTO 0.2 % (0.1-1.3); EOSINOPHILS ABSOLUTE AUTO 0.07 K/uL (0.00-0.40); EOSINOPHILS PERCENT AUTO 0.5 % (0.0-5.4); HEMATOCRIT 40.9 % (34.3-46.0); HEMOGLOBIN 13.9 g/dL (11.2-15.5); IMMATURE GRAN ABSOLUTE AUTO 0.05 K/uL (0.00-0.23); IMMATURE GRAN PERCENT AUTO 0.3 % (0.0-0.7); LYMPHOCYTES ABSOLUTE AUTO 0.75 K/uL (0.8-3.3); LYMPHOCYTES PERCENT AUTO 5.1 % (11.4-47.7); MEAN CORPUSCULAR VOLUME 85.4 fL (81.4-99.0); MONOCYTES ABSOLUTE AUTO 0.92 K/uL (0.20-0.90); MONOCYTES PERCENT AUTO 6.2 % (3.3-12.6); NEUTROPHILS ABSOLUTE AUTO 12.96 K/uL (1.0-7.6); NEUTROPHILS PERCENT AUTO 87.7 % (40.0-78.1); PLATELET COUNT,PLT 301 K/uL (130-375); RED BLOOD CELL COUNT 4.79 M/uL (3.77-5.24); WHITE BLOOD CELL COUNT,WBC 14.8 K/uL (3.2-11.0)
[2023-06-11 18:55] LABS: APPEARANCE,URINE SLIGHTLY CLOUDY (CLEAR); BILIRUBIN,URINE NEGATIVE (NEGATIVE); COLOR,URINE YELLOW (YELLOW); GLUCOSE,URINE NEGATIVE (NEGATIVE); KETONES,URINE 40 mg/dL (NEGATIVE); LEUKOCYTE ESTERASE,URINE NEGATIVE (NEGATIVE); NITRITE,URINE NEGATIVE (NEGATIVE); OCCULT BLOOD,URINE TRACE-INTACT (NEGATIVE); PROTEIN,URINE TRACE mg/dL (NEGATIVE)
[2023-06-11 18:59] LABS: RBC,URINE 0-5 (0-5); WBC,URINE 0-5 (0-5)
[2023-06-11 19:00] LABS: AMORPHOUS SEDIMENT,URINE NOT SEEN; BACTERIA,URINE MANY; EPITHELIAL CELLS,URINE MODERATE; MUCUS,URINE MODERATE
[2023-06-11 19:12] LABS: A/G RATIO 1.1 (1.2-2.2); ALANINE AMINOTRANSFERASE,ALT 38 U/L (12-78); ALBUMIN 3.7 g/dL (3.4-5.0); ALKALINE PHOSPHATASE 67 U/L (46-116); ASPARTATE AMNIOTRANSFERASE,AST 29 U/L (15-37); BILIRUBIN TOTAL 0.6 mg/dL (0.2-1.0); BLOOD UREA NITROGEN,BUN 10 mg/dL (7-18); CALCIUM 8.5 mg/dL (8.5-10.1); CARBON DIOXIDE,CO2 24 mmol/L (21-32); CHLORIDE,CL 100 mmol/L (100-108); CREATININE 0.8 mg/dL (0.6-1.0); EST CRCL DRUG DOSING (CG) 76.15 mL/min; ESTIMATED GFR 97 mL/min (>60); GLUCOSE RANDOM 105 mg/dL (74-106); POTASSIUM,K 3.3 mmol/L (3.6-5.2); SODIUM,NA 137 mmol/L (140-148)
[2023-06-11 19:13] LABS: ANION GAP 16.3 mmol/L (5.0-14.0)
[2023-06-11] MEDS ORDERED: cefTRIAXone 1 GM Vial IM ONE (19:20)
[2023-06-11] MEDS ORDERED: Lidocaine 2% 5 ML SDV INJECT ONE (19:27)
[2023-06-11] MEDS ORDERED: Lidocaine 1% 5 ML VIAL INJECT ONE (19:30)
== END 2023-06-11 19:50 | disposition home or self-care (01) ==
LOC: JP.ED 18:14
DX: N39.0 Urinary tract infection, site not specified (principal); E66.9 Obesity, unspecified; Z68.41 Body mass index [BMI] 40.0-44.9, adult; Z86.16 Personal history of COVID-19; Z88.2 Allergy status to sulfonamides
CPT/HCPCS: 36415; 80053; 81001; 85025; 87086; 96372; 99283; 99284; J0696

== ENCOUNTER 2024-06-01 13:22 | Emergency (ER) | payer MEDICAID ==
[2024-06-01 14:19] VITALS: BP 146/89; PULSE 105
[2024-06-01 14:46] LABS: BASOPHILS ABSOLUTE AUTO 0.03 K/uL (0.00-0.10); BASOPHILS PERCENT AUTO 0.4 % (0.1-1.3); EOSINOPHILS ABSOLUTE AUTO 0.04 K/uL (0.00-0.40); EOSINOPHILS PERCENT AUTO 0.6 % (0.0-5.4); HEMATOCRIT 44.1 % (34.3-46.0); HEMOGLOBIN 15.1 g/dL (11.2-15.5); IMMATURE GRAN PERCENT AUTO 0.3 % (0.0-0.7); LYMPHOCYTES ABSOLUTE AUTO 1.31 K/uL (0.8-3.3); MEAN CORPUSCULAR HGB CONC 34.2 g/dL (31.6-35.5); MEAN CORPUSCULAR VOLUME 84.6 fL (81.4-99.0); MONOCYTES ABSOLUTE AUTO 0.55 K/uL (0.20-0.90); NEUTROPHILS ABSOLUTE AUTO 4.96 K/uL (1.0-7.6); NEUTROPHILS PERCENT AUTO 71.7 % (40.0-78.1); PLATELET COUNT,PLT 271 K/uL (130-375); RED BLOOD CELL COUNT 5.21 M/uL (3.77-5.24); WHITE BLOOD CELL COUNT,WBC 6.9 K/uL (3.2-11.0)
[2024-06-01 14:52] LABS: IMMATURE GRAN ABSOLUTE AUTO 0.02 K/uL (0.00-0.23)
[2024-06-01 15:05] LABS: C-REACTIVE PROTEIN 6.58 mg/dL (<0.50); CALCIUM 9.3 mg/dL (8.5-10.1); CREATININE 0.9 mg/dL (0.6-1.0); EST CRCL DRUG DOSING (CG) 67.03 mL/min; POTASSIUM,K 3.9 mmol/L (3.6-5.2)
[2024-06-01 15:06] LABS: ANION GAP 13.9 mmol/L (5.0-14.0)
[2024-06-01 15:46] LABS: CORONAVIRUS COVID-19 NAA NEGATIVE (NEGATIVE); INFLUENZA A NAA NEGATIVE (NEGATIVE); INFLUENZA B NAA NEGATIVE (NEGATIVE); RESPIRATORY SYNCYTIAL VIR NAA NEGATIVE (NEGATIVE)
[2024-06-01] MEDS: Sodium Chloride 0.9% 10 ML Syringe FLUSH ONE (16:31)
[2024-06-01] MEDS: Sodium Chloride 0.9% 10 ML Syringe FLUSH PRN (16:38)
[2024-06-01] MEDS: Iopamidol 755 Mg/ML 100 ML Bottle IV SCH (16:38)
[2024-06-01] MEDS: Sodium Chloride 0.9% 60 ML IV SCH (16:39)
== END 2024-06-01 17:32 | disposition home or self-care (01) ==
LOC: JP.ED 13:22
DX: J18.9 Pneumonia, unspecified organism (principal); E66.9 Obesity, unspecified; Z68.41 Body mass index [BMI] 40.0-44.9, adult; Z86.16 Personal history of COVID-19; Z87.891 Personal history of nicotine dependence; Z79.899 Other long term (current) drug therapy; Z88.2 Allergy status to sulfonamides
CPT/HCPCS: 0241U; 36415; 71275; 80048; 83605; 84145; 84484; 85025; 85379; 86140; 87040; 93005; 93010; 99285; J3490; Q9967

== ENCOUNTER 2024-09-04 07:25 | Emergency (ER) | payer OTHER ==
[2024-09-04 07:42] VITALS: BP 136/72; PULSE 91
== END 2024-09-04 08:38 | disposition home or self-care (01) ==
LOC: JP.ED 07:25
DX: M62.838 Other muscle spasm (principal); E66.9 Obesity, unspecified; Z68.41 Body mass index [BMI] 40.0-44.9, adult; Z86.16 Personal history of COVID-19; Z87.891 Personal history of nicotine dependence; Z88.2 Allergy status to sulfonamides
CPT/HCPCS: 99283